=== PATIENT | male | born 2000 | race Hispanic/Latino ===

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

== ENCOUNTER 2019-11-25 21:24 | Emergency (ER) | payer SELFPAY ==
[~2019-11-25] VITALS: Ht 173 cm; Wt 68.0 kg
[2019-11-25] MEDS ORDERED: ROCURONIUM 10 MG/ML 5 ML SYRINGE IV ONE (21:27)
[2019-11-25] MEDS ORDERED: KETAMINE HCL 100 MG/ML 5 ML VIAL IJ ONE (21:27)
--- NOTE | 2019-11-25 21:30 | NUR ---
brought in by [facility] s/p ingestion of 90 10mg baclofen tablets approx. 2021 today. per ems pt unresponsive et. decision made to intubate in field. pt nasally intubated with 7.0 ett. 18 ga iv in lac infusing ns.
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
[2019-11-25] MEDS ORDERED: BACL10TA PO (21:34)
[2019-11-25] MEDS ORDERED: NS IV 1000 ML 1,000 ML IV SCH (21:42)
[2019-11-25] MEDS ORDERED: NALOXONE 2 MG/2 ML (NARCAN) SYR IV ONE (21:45)
--- NOTE | 2019-11-25 21:50 | NUR ---
no response to narcan.
[2019-11-25 21:57] LABS: ABG BASE EXCESS 1.2 MMOL/L (-2.5-2.5); ABG OXYGEN SATURATION 100 % (94-100); ABG PCO2 39 MMHG (35-45); ABG PH 7.43 (7.37-7.43); ABG PO2 152 MMHG (79-93); ABG TCO2 26.6 MMOL/L (21.0-31.0)
[2019-11-25 21:58] LABS: BASOPHILS # (AUTO) 0.1 10^3/uL (0.0-0.1); BASOPHILS % (AUTO) 1 % (0-10); EOSINOPHILS # (AUTO) 0.4 10^3/uL (0.0-0.3); EOSINOPHILS % (AUTO) 3 % (0-10); HEMATOCRIT 52 % (40-54); HEMOGLOBIN 17.7 G/DL (13.3-17.7); LYMPHOCYTES # (AUTO) 2.9 X 10^3 (1.0-4.0); LYMPHOCYTES % (AUTO) 26 % (12-44); MEAN CORPUSCULAR HEMOGLOBIN 30 PG (25-34); MEAN CORPUSCULAR HGB CONC 34 G/DL (32-36); MEAN CORPUSCULAR VOLUME 88 FL (80-99); MONOCYTES # (AUTO) 1.1 X 10^3 (0.0-1.0); MONOCYTES % (AUTO) 10 % (0-12); NEUTROPHILS # (AUTO) 6.5 X 10^3 (1.8-7.8); NEUTROPHILS % (AUTO) 60 % (42-75); PLATELET COUNT 313 10^3/uL (130-400); RED CELL DISTRIBUTION WIDTH 14.2 % (10.0-14.5); WHITE BLOOD COUNT 10.9 10^3/uL (4.3-11.0)
[2019-11-25 21:58] LABS: ALLENS TEST POSITIVE; INSPIRED O2 RA; PATIENT TEMP 36; VENTILATOR NO
[2019-11-25 22:09] LABS: ALANINE AMINOTRANSFERASE 93 U/L (0-55); ALBUMIN 4.5 GM/DL (3.2-4.5); ALKALINE PHOSPHATASE 74 U/L (40-136); BILIRUBIN,TOTAL 0.2 MG/DL (0.1-1.0); BUN/CREATININE RATIO 10; CALCIUM 9.6 MG/DL (8.5-10.1); CARBON DIOXIDE 25 MMOL/L (21-32); CHLORIDE 106 MMOL/L (98-107); CREATININE SERUM 0.91 MG/DL (0.60-1.30); GFR ESTIMATED > 60; GLUCOSE 86 MG/DL (70-105); POTASSIUM 4.3 MMOL/L (3.6-5.0); SALICYLATE < 5.0 MG/DL (5.0-20.0); SODIUM 143 MMOL/L (135-145); TOTAL PROTEIN 7.5 GM/DL (6.4-8.2)
--- NOTE | 2019-11-25 22:12 | NUR ---
erp spoke with pt's mother et. new suspected ingestion time of 2019 given to erp by pt's mother.
[2019-11-25 22:17] VITALS: BP 152/113
[2019-11-25 22:17] LABS: BILIRUBIN,URINE NEGATIVE (NEGATIVE); CLARITY,URINE CLEAR; COLOR,URINE YELLOW; GLUCOSE, URINE (UA) NEGATIVE (NEGATIVE); KETONES,URINE NEGATIVE (NEGATIVE); LEUKOCYTE ESTERASE ,URINE NEGATIVE (NEGATIVE); NITRITE,URINE NEGATIVE (NEGATIVE); PROTEIN,URINE NEGATIVE (NEGATIVE)
[2019-11-25] MEDS ORDERED: GABA-486 PO (22:23)
[2019-11-25] MEDS ORDERED: MELO7.5T46 PO (22:23)
[2019-11-25 22:27] LABS: ACETAMINOPHEN < 10 UG/ML (10-30)
[2019-11-25 22:28] LABS: BACTERIA,URINE NEGATIVE /HPF; RBC,URINE RARE /HPF
[2019-11-25 22:32] LABS: AMPHETAMINE SCREEN, URINE POSITIVE (NEGATIVE); BARBITURATE SCREEN URINE NEGATIVE (NEGATIVE); BENZODIAZEPINES SCREEN URINE NEGATIVE (NEGATIVE); CANNABINOID SCREEN, URINE POSITIVE (NEGATIVE); COCAINE SCREEN URINE NEGATIVE (NEGATIVE); METHADONE STAT NEGATIVE (NEGATIVE); METHAMPHETAMINE SCREEN URINE S POSITIVE (NEGATIVE); OPIATE SCREEN URINE NEGATIVE (NEGATIVE); OXYCODONE STAT NEGATIVE (NEGATIVE); PROPOXYPHENE STAT NEGATIVE (NEGATIVE); TRICYCLIC ANTIDEPRESSANTS SCRE NEGATIVE (NEGATIVE)
--- NOTE | 2019-11-25 23:03 | NUR ---
pt back from ct scan of head. monitor v.s. lost
--- NOTE | 2019-11-25 23:05 | NUR ---
dr. francois speaking with pt's mother on phone at this time.
--- NOTE | 2019-11-26 | NUR ---
unable to achieve adequeate relaxation to open jaw for tube exchange after 100mg ketamine, 100mg olga. 100mg propofol.
[2019-11-26] MEDS ORDERED: proPOfol 200 MG/20 ML (DIPRIVAN) VIAL IV ONE (00:06)
--- NOTE | 2019-11-26 00:37 | NUR ---
spoke with pt's mother updated on plan for transfer to [place] [facility] rm [id number]
[2019-11-26 00:58] VITALS: BP 142/104
--- NOTE | 2019-11-26 07:19 | Diagnostic Imaging Report ---
PROCEDURE: CT head without contrast. TECHNIQUE: Multiple contiguous axial images were obtained through the brain without the use of intravenous contrast. Auto Exposure Controls were utilized during the CT exam to meet ALARA standards for radiation dose reduction. INDICATION: Altered mental status. Overdose. Comparison with outside CT scan [facility] of 09/18/2016. FINDINGS: The ventricles and cortical gyral pattern are normal. There is no intracranial hemorrhage. No extra-axial fluid collection. Basal cisterns are clear. CP angles are normal. Pituitary is not enlarged. Mastoid air cells are clear. There is mild mucosal edema of the ethmoid sinuses. IMPRESSION: 1. No acute intracranial abnormality. 2. Mild mucosal edema of the ethmoid sinuses. These findings are concordant with the preliminary report. Dictated by: Dictated on workstation # [id number]
--- NOTE | 2019-11-26 07:22 | Diagnostic Imaging Report ---
INDICATION: Overdose. COMPARISON: 09/18/2016. FINDINGS: NG tube is present extending into the stomach which is decompressed. ET tube is present, tip is just above the alec overlying the tracheal shadow. The lungs are well-aerated and clear bilaterally. Heart is not enlarged. No pneumothorax or pleural effusion. IMPRESSION: Satisfactory ET tube and NG tube position with lungs well-aerated and clear. Dictated by: Dictated on workstation # [id number]
== END 2019-11-26 01:10 | disposition short-term general hospital (02) ==
LOC: EDUNIT# 21:24 → ER 21:26
DX: T42.8X4A Poisoning by antiparkinsonism drugs and other central muscle-tone depressants, undetermined, initial encounter (principal); F15.10 Other stimulant abuse, uncomplicated; Z88.5 Allergy status to narcotic agent
CPT/HCPCS: 36415; 51702; 70450; 71045; 80053; 80306; 80320; 80329; 81000; 82805; 83605; 84484; 85025; 93005; 93041; 94002